=== PATIENT | female | born 1955 | race Asian ===

== ENCOUNTER 2019-04-13 08:45 | Day surgery (SDC) | payer OTHER ==
[~2019-04-13] VITALS: Ht 139.7 cm; Wt 49.4 kg
[~2019-04-13 08:45] MED LIST: RANITIDINE; VITAMINS
[2019-04-13 09:36] VITALS: Ht 139.7 cm; Wt 49.4 kg
[2019-04-13 09:56] VITALS: BP 143/64; PULSE 76; RESP 15
[2019-04-13] MEDS ORDERED: LIDOCAINE 4% SOLUTION 50 ML BTL ONE (09:59)
[2019-04-13] MEDS ORDERED: MIDAZOLAM 1 MG/ML 2 ML INJ ONE ×2 (10:56)
[2019-04-13] MEDS ORDERED: FENTAnyl 50 MCG/ML VIAL ONE (10:56)
[2019-04-13 11:10] VITALS: BP 111/63; PULSE 81; RESP 18
== END 2019-04-13 11:40 | disposition home or self-care (01) ==
LOC: GIL 08:45
PROVIDERS: ATTEND Internal Medicine Gastroenterology
DX: Z12.11 Encounter for screening for malignant neoplasm of colon (principal); K64.0 First degree hemorrhoids; K29.30 Chronic superficial gastritis without bleeding; K25.3 Acute gastric ulcer without hemorrhage or perforation
CPT/HCPCS: 43239; 45378; 88305; 88312; J2250; J3010; Z7610